=== PATIENT | female | born 1950 | race Caucasian/White ===

== ENCOUNTER 2020-01-31 20:00 | Inpatient (IN) | payer MEDICARE, OTHER ==
--- NOTE | ~2020-01-31 | PN ---
PATIENT:DAWNA LYNCH MEDICAL RECORD: [id number] LOCATION:[facility] ADMISSION DATE: 01/31/20 PROGRESS NOTE DATE OF SERVICE: 02/08/2020 SUBJECTIVE: The patient's case was discussed with staff. She has no new complaint. OBJECTIVE: The patient is in good behavioral control with limited insight about her condition. She generally tolerates her medicines well. ASSESSMENT: 1. Major depression. 2. Obsessive compulsive disorder. PLAN: The patient has no evidence of acute or direct dangerousness. She will be transitioned out of the hospital today. Her long-term prognosis is guarded. TRANSINT:[id number] Voice Confirmation ID: [id number] DOCUMENT ID: [id number] ADAL MOORE MD CC: [id number] DICTATION DATE: 02/08/20 1510 VISITOR USE ASSISTANT: 02/08/20 2323 DIS IN 02/08/20 [facility] [address] [place] [address]
[~2020-01-31 20:00] MED LIST: ASPIRIN325 MG PO; CIPRO500 MG PO; FLAGYL500 MG PO; LEVAQUIN500 MG PO; NATURE THYROID PO; PHENERGAN25 M1 PO; PROZAC10 MG PO
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
[2020-01-31] MEDS ORDERED: KLONOPIN0.5 MG PO (20:38)
[2020-01-31 20:44] VITALS: BP 109/65
[2020-01-31 21:38] VITALS: BP 109/65; BMI 16.8
[2020-02-01 06:13] LABS: BASOPHILS 0.7 % (0-2); EOSINOPHILS 2.2 % (0-7); HEMATOCRIT 34.7 % (36.0-48.0); HEMOGLOBIN 11.2 g/dL (12-16); IMMATURE GRANULOCYTES 0.2 % (0-5); MCH 28.1 pg (26.0-34.0); MCHC 32.3 g/dL (31.0-37.0); MCV 87.2 fL (80.0-100.0); MEAN PLATELET VOLUME 9.2 fL (7.4-10.4); MONOCYTES 7.7 % (2-11); NEUTROPHILS 47.2 % (40-80); PLATELET COUNT 317 10x3/uL (130-400); RBC 3.98 10x6/uL (4.00-5.40); RDW 13.4 % (11.5-14.5); WBC 5.8 10x3/uL (4.8-10.8)
[2020-02-01 07:14] LABS: ALBUMIN 3.4 g/dL (3.4-5.0); ALKALINE PHOSPHATASE 54 U/L (30-120); ALT (SGPT) 16 U/L (10-68); BILIRUBIN - TOTAL 0.27 mg/dL (0.2-1.3); CALC OSMOLALITY 276 mosm/kg (275-300); CALCIUM 8.8 mg/dL (8.5-10.1); CARBON DIOXIDE 23.5 mmol/L (21.0-32.0); CHLORIDE - SERUM 106 mmol/L (98-107); CHOL - HDL RATIO 2.4 ratio (2.3-4.1); CHOLESTEROL, TOTAL 146 mg/dL (0-200); CREATININE - SERUM 0.7 mg/dL (0.6-1.3); GLUCOSE 86 mg/dL (74-106); HDL CHOLESTEROL 62 mg/dL (32-96); LDL CHOLESTEROL 77 mg/dL (0-100); LDL-HDL RATIO 1.2 ratio (1.5-3.5); POTASSIUM - SERUM 4.2 mmol/L (3.5-5.1); PROTEIN - SERUM 5.9 g/dL (6.4-8.2); SODIUM 138 mmol/L (136-145); THYROID STIMULATING HORMONE 2.57 uIU/mL (0.36-3.74); TRIGLYCERIDE 38 mg/dL (30-200); UREA NITROGEN 18 mg/dL (7-18); eGFR NON AFRICAN AMERICAN 88 mL/min (90-120)
[2020-02-01 14:28] VITALS: Wt 53.4 kg
--- NOTE | 2020-02-01 14:50 | NUR ---
PT SITTING AND SPEAKING WITH OTHER PEERS. PT IS SMILING AND HAS A PLEASANT AFFECT AT THIS TIME. PT IS VERY FRIENDLY WITH STAFF. NO NERVOUS MOVEMENTS NOTED. PT STATED SHE WAS GLAD THIS PLACE WAS CLEAN AND SHE COULD EAT AND DRINK. SHE REALLY LIKES IT HERE. PT IS COMPLIANT WITH STAFF. PT IS ALERT AND ORIENTED. PT AMBULATES AND CAN MAKE NEEDS KNOWN. WILL CONT PLAN OF CARE.
[2020-02-01 16:03] VITALS: BP 107/58
--- NOTE | 2020-02-01 19:23 | NUR ---
DURING VISITATION PT CAME TO VISIT HER. PT INSTANTLY BECAME NERVOUS STATING HE WAS A WHOLE GERM AND HE MAKES HER NERVOUS. PT BEGAN RAMBLING ABOUT HOW THE SEX GERMS FROM A PICTURE IN THE CLOSET GOT ONTO HIS TRUCK KEYS AND GOT INTO THE TRUCK AND IT WAS ALL CONTAMINTED. HIS SHOES AND HIM WERE NASTY. SHE COULD UNDERSTAND IT WAS HER OCD AND DID NOT KNOW SHE FELT THAT WAY. SHE CONT TO STATED SHE THOUGHT HE WAS GOING TO CALL AND NOT COME SEE HER. DOES NOT HAVE A PHONE. PT CONT TO BE NERVOUS THE WHOLE TIME SHE WAS WITH HER .
[2020-02-01 20:00] VITALS: BP 127/70
--- NOTE | 2020-02-02 00:29 | NUR ---
B)RECEIVED PATIENT SITTING IN THE DINING ROOM WITH OTHER FEMALE PEERS. ALERT AND ORIENTED X4. REALTES IS HERE DUE TO "DEPRESSION, ANXIETY AND I NEEDED HELP. AND OCD. OH GOODNESS OCD." PT IS GREATLY PHOBIC OF GERMS AND DOESN'T LIKE TO SHOWER IN A SHOWER THAT OTHERS USE. REALTED TO NURSE I'M SO TIRED DO I HAVE TO TAKE A SHOWER? INFORMED PATIENT WE ARE REQUIRED TO PROVIDE PERSONAL HYGIENE AT LEAST QOD. I)ADMINSITER MEDS AND MONITOR COMPLIANCE. ENCOURAGE PATIENT TO PERFORM ORAL HYGIENE DAILY AND BATHING QOD. R)MED COMPLIANT. PT WILL SHOWER AFTER PROMPTING BUT IS RELUCTANT DUE TO PHOBIA OF GERMS. P)CONTINUE POC AND PROVIDE SAFE ENVIRONMENT.
[2020-02-02 06:09] LABS: RAPID PLASMA REAGIN Non Reactive (Non Reactive)
--- NOTE | 2020-02-02 10:21 | NUR ---
The patient is awake and alert she has not made mention of germs this am, she is pleasant and talking with staff and peers. Provide prescribed meds. The patient is compliant with meds. Continue POC.
[2020-02-02 10:45] VITALS: BP 142/74
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
[2020-02-02 15:59] LABS: BILIRUBIN NEGATIVE (NEGATIVE); GLUCOSE NEGATIVE (NEGATIVE); KETONE NEGATIVE (NEGATIVE); NITRITE NEGATIVE (NEGATIVE); UROBILINOGEN NORMAL (NORMAL)
[2020-02-02 20:00] VITALS: BP 158/67
--- NOTE | 2020-02-03 00:30 | NUR ---
B.) PT IS ALERT AND ORIENTED X4. SHE IS ABLE TO AMBULATE WITHOUT ASSIST. SHE IS CALM AND COOPERATIVE WITH STAFF. SHE IS OBSERVED SOCIALIZING WITH PEERS. I.) PROVIDED PM MEDICATIONS PRESCRIBED. REDIRECT IF NEEDED. R.) COMPLIANT WITH ALL MEDICATIONS. EASY TO REDIRECT. P.) WILL CONTINUE TO MONITOR.
[2020-02-03 08:09] VITALS: BP 113/67
[2020-02-03 20:00] VITALS: BP 125/57; BP 153/53
--- NOTE | 2020-02-03 23:17 | NUR ---
B.) PT IS ALERT AND ORIENTED X4. SHE IS RECEIVED IN THE DAYROOM SOCIALIZING WITH HER PEERS. SHE RELATES THAT ONE OF THE MEDICATIONS MAKES HER FEEL DROWSY. SHE IS CALM, COOPERATIVE AND PLEASANT WITH STAFF. I.) PROVIDED PM MEDICATIONS. REDIRECT IF NEEDED. R.) COMPLIANT WITH ALL MEDICATIONS. EASY TO REDIRECT P.) WILL CONTINUE TO MONITOR.
[2020-02-04 08:34] VITALS: BP 121/77
--- NOTE | 2020-02-04 12:52 | NUR ---
The patient is awake and alert, she says she is so tired because of the medication. The patient's spouse called three times this am. Once to ask how she is doing and will the medicine work when she leaves the hopital, once to ask if she is eating well and does the hospital serve tacos, then again to tell her he took care of the cat last night that he got a ride to and fed the cat and that he liked [facility] and they want to move here.
[2020-02-04 20:04] VITALS: BP 121/54
--- NOTE | 2020-02-04 20:05 | NUR ---
RECEIVED IN DAYROOM. SITTING IN A CHAIR WITH PEERS AT HER SIDE. CALM AND COOPERATIVE WITH CARE AND ASSESSMENT. NO SIGNS OF HER PHOBIA AT THIS TIME. REDIRECT AND REORIENT NEEDED. CONTINUES TO SIT CALMLY IN DAYROOM. CONTINUE PLAN OF CARE.
[2020-02-05 07:40] VITALS: BP 112/64
--- NOTE | 2020-02-05 12:00 | NUR ---
RECEIVED IN HALLWAY OUTSIDE OF NURSES STATION. CALM AND COOPERATIVE WITH CARE AND ASSESSMENT. NO SIGNS OF HER GERM PHOBIA. REDIRECT AND REORIENT NEEDED. EATING LUNCH AT THIS TIME. CONTINUE PLAN OF CARE.
--- NOTE | 2020-02-05 12:04 | PSY ---
PATIENT NAME:DAWNA LYNCH MEDICAL RECORD: [id number] : 54 LOCATION:[facility] ADMISSION DATE: 01/31/20 ACCOUNT: [id number] PSYCHIATRIC EVALUATION DATE OF EVALUATION: 02/01/20 IDENTIFYING DATA: The patient is 69 years old and she is admitted to the hospital on a voluntary basis. CHIEF COMPLAINT: "I just cannot take it anymore." HISTORY OF PRESENT ILLNESS: The patient initially presented to the [facility] Emergency Room, was evaluated there and then referred to us for inpatient care. She has an obsessive fear of germs. She is throwing new clothing away because she thinks it is contaminated. She also will not use her eye drops for her glaucoma, even though she is losing her vision because she believes that the drops are contaminated. She is eating only white bread and beans also because of this fear. She endorses numerous neurovegetative depressive symptoms. States that she has had thoughts of self-harm, but denies active intent. PAST MEDICAL HISTORY: Significant for hypothyroidism, glaucoma. PAST PSYCHIATRIC HISTORY: Significant for obsessive compulsive disease and depression. FAMILY HISTORY: Significant for diabetes, cancer, and cardiovascular disease. ALLERGIES: No known drug allergies. CURRENT MEDICATIONS: Include Klonopin and aspirin. SOCIAL HISTORY: The patient is . She has no children. Her has multiple sclerosis. 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 MENTAL STATUS EXAMINATION: The patient is awake, alert and oriented to person, place, time and situation. Her mood is depressed. Her affect is constricted. Thought processes are circumstantial. Memory, concentration, and abstraction abilities are moderately impaired and she denies any intent to harm herself or others as well as psychotic symptoms. ASSETS: Supportive family members. LIABILITIES: Limited insight. DIAGNOSTIC IMPRESSION: AXIS I: Major depression, severe, recurrent without psychotic features; obsessive compulsive disorder. AXIS II: Cluster C personality disorder. AXIS III: Hypothyroidism, glaucoma, and anemia. AXIS IV: Moderate. AXIS V: Global assessment of functioning is 40. PLAN: At this time, the patient is admitted to the hospital secondary to ongoing psychiatric issues associated with an obsessive compulsive illness that has become delusional and a depressive illness that is severe. She is having intermittent thoughts of self-harm and needs to be confined to the hospital for medical stabilization. TRANSINT:[id number] Voice Confirmation ID: [id number] DOCUMENT ID: [id number] ADAL MOORE MD at 1204 CC: [id number] DICTATION DATE: 02/01/20 1632 BAR CAPTAIN: 02/01/20 1650 ADM IN [facility] [address] [place] [address]
[2020-02-05 21:00] VITALS: BP 112/58
--- NOTE | 2020-02-05 21:54 | NUR ---
RECEIVED IN HALLWAY SITTING OUTSIDE OF NURSES STATION. CALM AND COOPERATIVE WITH CARE AND ASSESSMENT. NO STATEMENT RELATED TO HER PHOBIA VOICED THIS EVENING. REDIRECT AND REORIENT NEEDED. RESTING IN BED WITH EYES CLOSED AT THIS TIME. CONTINUE PLAN OF CARE.
[2020-02-06 08:04] VITALS: BP 106/60
--- NOTE | 2020-02-06 14:42 | NUR ---
Nutrition Follow-up: PO intake seems to fluctuate. Ate 10-80% of meals yesterday. Diet: Regular, Ensure TID PO intake: 67% avg x 9 meals Wt: 117# (02/03); 107# (01/30) Last BM: 02/02 No new labs Meds noted: vitamin D, Miralax -Encourage PO intake and honor food preferences. -Monitor wt. -RD following.
--- NOTE | 2020-02-06 15:00 | PN ---
PATIENT:DAWNA LYNCH MEDICAL RECORD: [id number] LOCATION:[facility] ADMISSION DATE: 01/31/20 PROGRESS NOTE DATE OF SERVICE: 02/05/2020 SUBJECTIVE: The patient's case was discussed with staff. She has no new complaint. OBJECTIVE: The patient is in good behavioral control with limited insight about her situation. She is still expressing a fear of infection that is consistent with a severe obsessive compulsive disorder. ASSESSMENT: 1. Major depression. 2. Obsessive compulsive disorder. PLAN: The patient will be maintained on current medicines. I will discuss her transitioning out of the hospital with the treatment team. TRANSINT:[id number] Voice Confirmation ID: [id number] DOCUMENT ID: [id number] ADAL MOORE MD at 1500 CC: [id number] DICTATION DATE: 02/05/20 1338 CLINIC CHARGE NURSE: 02/05/20 1404 ADM IN [facility] [address] [place] [address]
--- NOTE | 2020-02-06 17:00 | NUR ---
RECEIVED IN HALLWAY OUTSIDE OF NURSES STATION. CALM AND COOPERATIVE WITH CARE AND ASSESSMENT. NO BEHAVIORS. REDIRECT AND REORIENT NEEDED. EATING AT THIS TIME. CONTINUE PLAN OF CARE.
[2020-02-06 20:09] VITALS: BP 128/66
--- NOTE | 2020-02-06 21:12 | NUR ---
PT RELATES THAT SHE IS ANXIOUS ABOUT THE ROOM CHANGE. SHE REQUESTS TO BE THE ONE TO MOVE HER ITEMS FROM HER OLD ROOM INTO HER NEW ONE TO ENSURE THAT HER STUFF DOES NOT TOUCH THE GROUND. ALLOWED HER TO MOVE HER ITEMS AND ATTEMPTED TO REDIRECT. SHE IS DIFFICULT TO REDIRECT AT TIMES. WILL CONTINUE TO MONITOR.
--- NOTE | 2020-02-06 21:36 | NUR ---
RECEIVED IN DAYROOM. SITTING IN A CHAIR WITH PEERS AT HER SIDE. CALM AND COOPERATIVE WITH CARE AND ASSESSMENT. NO SIGNS OF HER PHOBIA AT THIS TIME. REDIRECT AND REORIENT NEEDED. RESTING IN BED EYES OPEN AT THIS TIME. CONTINUE PLAN OF CARE.
--- NOTE | 2020-02-06 23:43 | NUR ---
PT IS CALMLY RESTING IN HER BED WITH EYES CLOSED. NO DISTRESS NOTED AND WILL CONTINUE TO MONITOR.
--- NOTE | 2020-02-07 10:16 | NUR ---
The patient is awake and alert. She is less anxious and less sleepy today. She is calm and she is interacting with staff. Provide prescribed meds. She is compliant with meds and unit milieu. The patient has not made any reference to germs and being froghtened of germs. Continue POC.
[2020-02-07 10:28] VITALS: BP 132/65
--- NOTE | 2020-02-07 14:51 | PN ---
PATIENT:DAWNA LYNCH MEDICAL RECORD: [id number] LOCATION:[facility] ADMISSION DATE: 01/31/20 PROGRESS NOTE DATE OF SERVICE: 02/06/2020 SUBJECTIVE: The patient's case was discussed with staff. She has no new complaint. OBJECTIVE: The patient denies that she would seek to harm herself or others. She is generally tolerating her medicines well, although she may be a little sedated from the Klonopin. ASSESSMENT: 1. Major depression. 2. Obsessive compulsive disorder. PLAN: The patient will be treated with Klonopin at bedtime to assist with sleep consolidation. Her long-term prognosis is guarded. TRANSINT:[id number] Voice Confirmation ID: [id number] DOCUMENT ID: [id number] ADAL MOORE MD at 1451 CC: [id number] DICTATION DATE: 02/06/20 1536 PRESIDENT/GM [employer]ODUCTION [employer]IVE EXPERIENCES: 02/06/20 2306 ADM IN [place] [id number] [place] [address]
[2020-02-07] MEDS ORDERED: FLUVOXAMINE MAL50 MG PO (17:11)
[2020-02-07] MEDS ORDERED: MIRALAX17 GM PO (17:11)
[2020-02-07] MEDS ORDERED: VITAMIN D5000 UNI1 PO (17:12)
[2020-02-07 20:25] VITALS: BP 130/61
--- NOTE | 2020-02-07 22:54 | NUR ---
B.) PT IS ALERT AND ORIENTED X4. SHE IS ABLE TO VOICE HER NEEDS AND WANTS. SHE IS CALM AND COOPERATIVE WITH STAFF. SHE IS RECEIVED IN THE DAYROOM SOCIALIZING WITH HER PEERS. I.) PROVIDED PM MEDICATIONS. REDIRECT NEEDED. R.) COMPLIANT WITH ALL MEDICATIONS. EASY TO REDIRECT. P.) WILL CONTINUET TO MONITOR.
[2020-02-08 08:33] VITALS: BP 135/74
--- NOTE | 2020-02-08 12:47 | NUR ---
has called twice to check on pt. passcode given. he wanted to know if she was leaving today. nurse explained she asked to wait a couple of days. she said he would come to visitation.
--- NOTE | 2020-02-08 14:18 | NUR ---
Nutrition Follow-up: PO intake fluctuates. Ate 20-85% of meals yesterday. Diet: Regular, Ensure TID PO intake: 59% avg x 9 meals Wt: 117# (02/03); 107# (01/31) Last BM: 02/04 No new labs Meds noted: Miralax, vitamin D -Encourage PO intake and honor food preferences. -Monitor wt. -RD following.
--- NOTE | 2020-02-08 14:39 | PN ---
PATIENT:DWANA LYNCH MEDICAL RECORD: [id number] LOCATION:[facility] ADMISSION DATE: 01/31/20 PROGRESS NOTE DATE OF SERVICE: 02/07/2020 SUBJECTIVE: The patient's case was discussed with staff. She has no new complaint. OBJECTIVE: The patient is sleeping and eating well. She denies intent to harm herself or others. She still has obsessive compulsive symptoms as I would expect. ASSESSMENT: 1. Major depression. 2. Obsessive compulsive disorder. PLAN: The patient will be maintained on current medications, which I have reviewed. She is not showing evidence of acute or direct dangerousness. I think she can reasonably be transitioned out of the hospital and I plan to discharge her tomorrow. She is in need of followup for cognitive behavioral therapy and pharmacologic management of her underlying condition. Her OCD and depression are very treatable. She is in need of additional treatment. She just simply does not need this level of intensive supervision here. It will be very important for her to follow up with these outpatient treatment recommendations. TRANSINT:[id number] Voice Confirmation ID: [id number] DOCUMENT ID: [id number] ADAL MOORE MD at 1439 CC: [id number] DICTATION DATE: 02/07/20 1710 TILE MASON: 02/08/20 0234 [facility] [place] [id number] [place] [address]
== END 2020-02-08 16:45 | disposition home or self-care (01) | DRG 880 ==
LOC: D.PSYCH 20:00
PROVIDERS: ADMIT Psychiatry & Neurology Psychiatry; ATTEND Psychiatry & Neurology Psychiatry
DX: F41.8 Other specified anxiety disorders (principal); F42.9 Obsessive-compulsive disorder, unspecified; E55.9 Vitamin D deficiency, unspecified; H40.9 Unspecified glaucoma; E03.9 Hypothyroidism, unspecified; D50.9 Iron deficiency anemia, unspecified; F60.89 Other specific personality disorders; K59.00 Constipation, unspecified